=== PATIENT | male | born 1995 | race Two or more races ===

== ENCOUNTER → 2020-10-16 | Emergency (ER) | payer OTHER ==
[~2020-10-16] VITALS: Ht 177.8 cm; Wt 95.3 kg
[~2020-10-16] MED LIST: HYDROcodone-ACET 5/325MG TAB ONE; HYDROcodone-ACET 5/325MG TAB PO ONE
[2020-10-16 00:33] VITALS: BP 107/47
== END | disposition home or self-care (01) ==
LOC: ER 00:12
DX: S62.320A Displaced fracture of shaft of second metacarpal bone, right hand, initial encounter for closed fracture (principal); Y04.0XXA Assault by unarmed brawl or fight, initial encounter; Y93.89 Activity, other specified; Y92.89 Other specified places as the place of occurrence of the external cause; Y99.8 Other external cause status
CPT/HCPCS: 29125; 73130

== ENCOUNTER 2023-11-17 16:25 | Emergency (ER) | payer OTHER ==
[~2023-11-17] VITALS: Ht 170.2 cm; Wt 77.5 kg
[2023-11-17 17:05] VITALS: PULSE 124; RESP 20; TEMP 97.9; O2SAT 95
[2023-11-17] MEDS: ONDANSETRON HCL 4 MG/2 ML VIAL IV ONE (17:45)
[2023-11-17] MEDS: LORazepam 2MG/ML-1ML VIAL IV ONE ×2 (17:45→18:20)
[2023-11-17] MEDS: THIAMINE 100mg/ml INJ (200mg/2ml VIAL) IV ONE (17:45)
[2023-11-17] MEDS: SODIUM CHLORIDE 0.9% 1,000 ML IV ONE ×2 (17:52→17:53)
[2023-11-17 19:30] VITALS: PULSE 113; RESP 18; O2SAT 92
[2023-11-18] MEDS ORDERED: ONDANSETRON ODT 4 MG TAB PO ONE (02:15)
[2023-11-18] MEDS: ONDANSETRON HCL 4 MG/2 ML VIAL ONE (02:20)
[2023-11-18] MEDS: ONDANSETRON HCL 4 MG/2 ML VIAL IV ONE ×2 (02:21→08:09)
[2023-11-18 02:27] LABS: Basophils # (auto) 0.1 10 ^3/uL (0-0.2); Basophils % (auto) 0.5 % (0.0-2.0); Eosinophils # (auto) 0 10 ^3/uL (0-0.8); Eosinophils % (auto) 0.1 % (0.0-7.0); Hematocrit 46.2 % (41.0-53.0); Hemoglobin 15.5 g/dL (13.5-17.5); Lymphocytes # (auto) 2.6 10 ^3/uL (0.4-5.4); Lymphocytes % (auto) 19.6 % (10.0-50.0); Mean Corpuscular Hemoglobin 31.5 pg (28.0-32.0); Mean Corpuscular Hgb Conc. 33.5 g/dL (32.0-36.0); Monocytes # (auto) 0.7 10 ^3/uL (0-1.3); Monocytes % (auto) 5.4 % (0.0-12.0); Neutrophils # (auto) 9.8 10 ^3/uL (1.6-8.6); Neutrophils % (auto) 74.4 % (37.0-80.0); Nucleated Red Blood Cells % 0.1 %; Red Blood Cells 4.91 10^6/uL (4.5-5.90); Red Cell Distribution Width 14.4 % (11.8-14.3); White Blood Cell 13.2 10^3/uL (4.4-10.8)
[2023-11-18 03:18] LABS: Platelet Estimate Decreased
[2023-11-18 08:00] VITALS: BP 143/68
[2023-11-18 08:13] VITALS: PULSE 100; RESP 20; O2SAT 96
== END 2023-11-18 08:31 | disposition home or self-care (01) ==
LOC: ER 16:25 → EDUNIT# 16:25 → EDBD 16:25 → ER 11-18 08:31
DX: F10.129 Alcohol abuse with intoxication, unspecified (principal); Y90.0 Blood alcohol level of less than 20 mg/100 ml
CPT/HCPCS: 36415; 70450; 80320; 85025; 96361; 96374; 96375; 96376; 99285; J2060; J2405; J3411; J7030